=== PATIENT | female | born 2000 | race Caucasian/White ===

== ENCOUNTER 2021-10-19 23:37 | Emergency (ER) | payer OTHER ==
[~2021-10-19] VITALS: Ht 172.7 cm; Wt 83.9 kg
[2021-10-19 23:42] VITALS: BP 109/78
[2021-10-20] MEDS ORDERED: CLARITIN10 M3 PO (00:04)
== END 2021-10-20 01:38 | disposition home or self-care (01) ==
LOC: ER 23:37
PROVIDERS: Student in an Organized Health Care Education/Training Program
DX: U07.1 COVID-19 (principal); J10.1 Influenza due to other identified influenza virus with other respiratory manifestations; Z79.899 Other long term (current) drug therapy; Z88.0 Allergy status to penicillin